=== PATIENT | male | born 1985 | race Caucasian/White ===

== ENCOUNTER 2024-03-06 14:35 | Emergency (ER) | payer OTHER ==
[~2024-03-06] VITALS: Ht 175.3 cm; Wt 83.9 kg
[2024-03-06 15:20] VITALS: BP_SYST 135; PULSE 85; RESP 18; TEMP 98; O2SAT 97
[2024-03-06] MEDS: KETOROLAC TROMETHAMINE 30 MG VIAL IM ONE (15:57)
[2024-03-06] MEDS: METOCLOPRAMIDE HCL 10 MG/2 ML VIAL IM ONE (15:57)
[2024-03-06] MEDS: LIDOCAINE PATCH 5% 1 EA TP ONE (15:58)
[2024-03-06] MEDS ORDERED: LIDO1ADH22 TP (17:57)
[2024-03-06 18:06] VITALS: BP_SYST 135; PULSE 85; RESP 18; TEMP 98; O2SAT 97
== END 2024-03-06 18:06 | disposition home or self-care (01) ==
LOC: SED 14:35
DX: S06.0XAA Concussion with loss of consciousness status unknown, initial encounter (principal); V43.52XA Car driver injured in collision with other type car in traffic accident, initial encounter; Y93.89 Activity, other specified; Y92.410 Unspecified street and highway as the place of occurrence of the external cause; Y99.8 Other external cause status
CPT/HCPCS: 99285; 72125; 73100; 73564; 72128; 96372; J1885; J2765